=== PATIENT | male | born 1970 | race Caucasian/White ===

== ENCOUNTER 2017-05-08 17:19 | Emergency (ER) | payer MEDICAID ==
[~2017-05-08] VITALS: Ht 182.9 cm; Wt 81.6 kg
[2017-05-08 17:31] VITALS: BP 134/91
--- NOTE | 2017-05-08 17:43 | Emergency Room Report ---
History of Present Illness General Chief Complaint: Abdominal Pain Source: Patient Present Illness HPI 52-year-old male, presenting with right groin pain. Patient states that his hernia came out about 3 hours prior to arrival. States that he cannot pass any gas. His last stool was yesterday. Since that this has never happened before. No nausea vomiting or fever Allergies: Coded Allergies: No Known Allergies (Unverified , 05/08/17) Patient History Past Medical History: see triage record Past Surgical History: none Pertinent Family History: none Reviewed Nursing Documentation: PMH: Agreed, PSxH: Agreed Review of Systems All Other Systems: negative except mentioned in HPI Physical Exam Vital Signs Date Time Temp Pulse Resp B/P (MAP) Pulse Ox O2 Delivery O2 Flow Rate FiO2 05/08/17 17:20 97.5 88 18 134/91 97 Room Air 97.5 Sp02 EP Interpretation: reviewed, normal General Appearance: alert, GCS 15, non-toxic, moderate distress Head: normocephalic, atraumatic Eyes: bilateral eye normal inspection, bilateral eye PERRL, bilateral eye EOMI ENT: normal ENT inspection, normal pharynx, normal voice, moist mucus membranes Neck: normal inspection, full range of motion, supple Respiratory: normal inspection, lungs clear, normal breath sounds, no respiratory distress, no retraction, no wheezing, speaking full sentences, chest symmetrical Cardiovascular #1: normal inspection, regular rate, rhythm, normal capillary refill Cardiovascular #2: 2+ radial (R), 2+ radial (L) Gastrointestinal: normal inspection, non tender, soft, non-distended, no guarding Genitourinary: other - R sided hernia non reducible, tender Musculoskeletal: normal inspection, back normal, normal range of motion, non- tender Neurologic: normal inspection, alert, oriented x3, responsive, motor strength/ tone normal, sensory intact, normal gait, speech normal Psychiatric: normal inspection, judgement/insight normal, memory normal Skin: normal inspection, normal color, no rash, warm/dry, well hydrated, normal turgor Medical Decision Making Diagnostic Impression: Primary Impression: Inguinal hernia ER Course 52-year-old male with right-sided hernia pain DDX: Incarcerated hernia Plan: Pain control, reduction ER course: Patient given 1 g of Tylenol for pain Dr Pfeiffer from surgery came and reduced hernia Disposition: Patient is to be discharged to home. FU with his surgeon Strict return precautions discussed with patient such as fever, chills, worsening/severe pain, chest pain, SOB, nausea, vomiting, which may indicate severe illness. Patient verbalizes understanding and agrees with plan. Please note that this Emergency Department Report was dictated using [employer] attendant technology software, occasionally this can lead to erroneous entry secondary to interpretation by the dictation equipment Last Vital Signs Date Time Temp Pulse Resp B/P (MAP) Pulse Ox O2 Delivery O2 Flow Rate FiO2 05/08/17 17:31 97.5 18 134/91 97 Room Air 97.5 05/08/17 17:20 88 Disposition: HOME, SELF-CARE Condition: Improved Tyson Sanchez M.D. May 08, 2017 17:43
[2017-05-08] MEDS ORDERED: Morphine Sulfate 4mg/ml Inj IM ONE (17:45)
[2017-05-08] MEDS ORDERED: Acetaminophen 500mg (ES) tab ORAL ONE (17:45)
--- NOTE | 2017-05-08 18:13 | Consultation ---
History of Present Illness General Date patient seen: May 08, 2017 Chief Complaint: Abdominal Pain Reason for Consultation: incarcerated right inguinal hernia Present Illness HPI 52 year old male with history of drug abuse, known right inguinal hernia, repaired left inguinal hernia, presented with acute incarceration of right inguinal hernia. States that he was well until about 2-3 hrs ago when he noted acute pain in his right groin. no n/v/f/c. pain persistent and bulge unable to reduce. came in for evaluation. surgery called to evaluate given hernia difficult to reduce. patient states that he has had a right inguinal hernia for about 2 years now. about 1 month ago had acute incarceration and went to outside ED where it was reduced and he was discharged with follow up. States that he has faxed his information over to PCP or insurance? to have hernia repair scheduled but has not been given appointment yet. currently has been drug free for 1 day. hx of meth and crack use. wants to stay clean. denies pmhx has had left inguinal hernia repair 30 years ago. no allergies no meds no fhx. Allergies: Coded Allergies: No Known Allergies (Unverified , 05/08/17) Patient History History Provided By: Patient Healthcare decision maker Resuscitation status Advanced Directive on File Past Medical/Surgical History Past Medical/Surgical History: (1) Inguinal hernia Review of Systems Constitutional: Denies: no symptoms, see HPI, chills, sweats, fever, malaise, weakness, other Eye: Denies: no symptoms, see HPI, eye pain, blurred vision, tearing, double vision, nose pain, nose congestion, acuity changes, discharge, other ENT: Denies: no symptoms, see HPI, ear pain, ear discharge, nose pain, nose congestion, throat pain, throat swelling, mouth pain, hearing loss, nasal discharge, other Respiratory: Denies: no symptoms, see HPI, cough, orthopnea, shortness of breath, stridor, wheezing, [place], sputum, other Cardiovascular: Denies: no symptoms, see HPI, chest pain, edema, palpitations, syncope, PND, other Gastrointestinal: Reports: other - right groin pain Genitourinary: Denies: no symptoms, see HPI, discharge, dysuria, frequency, hematuria, pain, retention, incontinence, urgency, vag bleed/dc, other Musculoskeletal: Denies: no symptoms, see HPI, back pain, gout, joint pain, joint swelling, muscle pain, muscle stiffness, other Skin: Denies: no symptoms, see HPI, rash, change in color, change in hair/nails , dryness, lesions, other Psychiatric: Denies: no symptoms, see HPI, prior hx, anxiety, depressed feelings, emotional problems, SI, HI, hallucinations, other Neurological: Denies: no symptoms, see HPI, headache, numbness, paresthesia, seizure, tingling, tremors, focal weakness, syncope, dizziness, other Endocrine: Denies: no symptoms, see HPI, excessive sweating, flushing, intolerance to temperature, increased thirst, increased urine, unexplained weight loss, other Hematologic/Lymphatic: Denies: no symptoms, see HPI, anemia, blood clots, easy bleeding, easy bruising, swollen glands, diathesis, other Physical Exam General Appearance: no apparent distress, alert Lines, tubes and drains: peripheral HEENT: normocephalic, atraumatic, PERRL Neck: normal alignment, normal inspection Respiratory/Chest: lungs clear, normal breath sounds, no respiratory distress, no accessory muscle use Cardiovascular/Chest: normal peripheral pulses, normal rate Abdomen: normal bowel sounds, non tender, soft, no organomegaly, no mass Genitourinary/Rectal: other - prior left inguinal hernia surgery scar well healed. right side with acute incarcerated hernia with right buldge. no erythema, no edema, no signs of strangulation Extremities: normal range of motion, non-tender, normal inspection Skin Exam: normal pigmentation, warm/dry Neurologic: alert, oriented x 3, responsive Last 24 Hour Vital Signs Date Time Temp Pulse Resp B/P (MAP) Pulse Ox O2 Delivery O2 Flow Rate FiO2 05/08/17 17:52 97.5 05/08/17 17:50 97.5 05/08/17 17:31 97.5 18 134/91 97 Room Air 97.5 05/08/17 17:20 97.5 88 18 134/91 97 Room Air 97.5 Height (Feet): 6 Weight (Pounds): 180 Assessment/Plan Problem List: (1) Inguinal hernia Assessment & Plan: 52M with incarcerated right inguinal hernia. afebrile, HD stable, exam as above. patient placed in Trendelenburg position. was able to reduce hernia in ED without complication. patient states immediate improvement after reduction. exam some time after reduction benign. improved. no pain. abd/groin exam benign. -okay to d/c from surgical standpoint -follow up with his PCP/Surgeon soon to have repair of right inguinal hernia -thank you for allowing me to participate in Mr. Fajardo care. ICD Codes: K40.90 - Unilateral inguinal hernia, without obstruction or gangrene , not specified as recurrent SNOMED: [id number] Qualifiers: Qualified Codes: K40.90 - Unilateral inguinal hernia, without obstruction or gangrene, not specified as recurrent Status: stable Sixto Pfeiffer May 08, 2017 18:12
[2017-05-08 18:21] VITALS: BP 134/91
== END 2017-05-08 18:22 | disposition home or self-care (01) ==
LOC: EMR 18:03 → EDBD 18:03 → EMR 18:22
DX: K40.30 Unilateral inguinal hernia, with obstruction, without gangrene, not specified as recurrent (principal)
CPT/HCPCS: 99282

== ENCOUNTER 2017-05-25 02:25 | Emergency (ER) | payer MEDICAID ==
[~2017-05-25] VITALS: Ht 182.9 cm; Wt 88.5 kg
--- NOTE | 2017-05-25 02:37 | Emergency Room Report ---
History of Present Illness General Chief Complaint: Abdominal Pain Source: Patient Present Illness HPI This is a 47-year-old male who has a history of drug and alcohol abuse and currently in a treatment center. He also has a history of left inguinal hernia repair in the past. He was here recently for right inner hernia incarceration. He was reduced by surgeon and he said he was doing fine since then. He presents with chief complaint of acute onset of left lower quadrant pain for the last 2 to 3 hours. All other hernia containing back. Denies any fever chills but no trauma. No urinary complaint. No hematuria. Pain is severe 10 out of 10. Nothing made it better. Nothing made it worse. He came by [facility]. Allergies: Coded Allergies: No Known Allergies (Unverified , 05/08/17) Patient History Past Medical History: see triage record, old chart reviewed Past Surgical History: other Pertinent Family History: none Social History: Denies: smoking Immunizations: other Reviewed Nursing Documentation: PMH: Agreed; PSxH: Agreed Review of Systems Eye: Denies: eye pain, blurred vision ENT: Denies: ear pain, nose congestion, throat swelling Respiratory: Denies: cough, shortness of breath Cardiovascular: Denies: chest pain, palpitations Gastrointestinal: Reports: abdominal pain; Denies: diarrhea, nausea, vomiting Musculoskeletal: Denies: back pain, joint pain Skin: Denies: rash Neurological: Denies: headache, numbness Endocrine: Denies: increased thirst, increased urine Hematologic/Lymphatic: Denies: easy bruising All Other Systems: negative except mentioned in HPI Physical Exam Vital Signs Date Time Temp Pulse Resp B/P (MAP) Pulse Ox O2 Delivery O2 Flow Rate FiO2 05/25/17 02:28 98.1 83 20 144/107 99 Room Air 98.1 vitals normal Sp02 EP Interpretation: reviewed, normal General Appearance: well appearing, no apparent distress, alert Head: normocephalic, atraumatic Eyes: bilateral eye PERRL, bilateral eye EOMI ENT: hearing grossly normal, normal pharynx Neck: full range of motion, supple, no meningismus Respiratory: chest non-tender, lungs clear, normal breath sounds Cardiovascular #1: regular rate, rhythm, no murmur Gastrointestinal: normal bowel sounds, non tender, no mass, no organomegaly, no bruit, non-distended Genitourinary: other - large right inguinal hernia that reducible. Small left inguinal hernia also reducible. Musculoskeletal: back normal, gait/station normal, normal range of motion Psychiatric: mood/affect normal Skin: warm/dry Medical Decision Making Diagnostic Impression: Primary Impression: Ureteral calculus, left ER Course Patient with renal colic from ureteral stone. No evidence of infection. Pain is well-controlled now. No evidence of incarcerated hernia. We'll discharge home. CT/MRI/US Diagnostic Results CT/MRI/US Diagnostic Results : Imaging Test Ordered: CT abdomen and pelvis Impression Read by radiologist. Obstructive left proximal ureteral stone measured 3 mm. Last Vital Signs Date Time Temp Pulse Resp B/P (MAP) Pulse Ox O2 Delivery O2 Flow Rate FiO2 05/25/17 02:28 98.1 83 20 144/107 99 Room Air 98.1 Status: improved Disposition: HOME, SELF-CARE Condition: Stable Scripts Tamsulosin HCl (Flomax) 0.4 Mg Cap.er.24h 0.4 MG ORAL DAILY, #21 CAP Prov: MARA CARRION M.D. 05/25/17 Ibuprofen* (MOTRIN*) 600 Mg Tablet 600 MG ORAL Q8H PRN for For Pain, #30 TAB 0 Refills Prov: MARA CARRION M.D. 05/25/17 Hydrocodone/Acetaminophen 5-325* (HYDROCODONE/ACETAMINOPHEN 5-325*) 1 Each Tablet 1 TAB ORAL Q6H PRN for For Pain, #20 TAB 0 Refills Prov: MARA CARRION M.D. 05/25/17 Additional Instructions: Increase fluids. Follow-up your doctor in 2-3 days if not better. Return if symptom worsen. MARA CARRION M.D. May 25, 2017 02:37
[2017-05-25] MEDS ORDERED: HYDROmorphone 1mg/ml Carpuject IM ONE (02:45)
[2017-05-25 03:05] LABS: APPEARANCE,URINE VERY CLOUDY; BILIRUBIN, URINE 1+ (NEGATIVE); COLOR,URINE BROWN; GLUCOSE, URINE (UA) NEGATIVE (NEGATIVE); KETONES,URINE 1+ (NEGATIVE); LEUKOCYTE ESTERASE ,URINE 2+ (NEGATIVE); NITRITE,URINE POSITIVE (NEGATIVE); PH,URINE 5 (4.5-8.0); PROTEIN,URINE 3+ (NEGATIVE); UROBILINOGEN,URINE 1 MG/DL (0.0-1.0)
[2017-05-25] MEDS ORDERED: FLOMAX0.4 MG ORAL (03:51)
[2017-05-25] MEDS ORDERED: HYDROCODON-ACE1 EA15 ORAL (03:51)
[2017-05-25] MEDS ORDERED: IBUPROFEN600 MG ORAL (03:51)
[2017-05-25 03:57] VITALS: BP 144/107
--- NOTE | 2017-05-25 08:25 | Diagnostic Imaging Report ---
Indication: Reason For Exam: ABD PAIN Technique: Continuous helical scanning was performed without any contrast material from the diaphragms through the pelvis . Axial, sagittal, and coronal images were generated. Dose: Total Dose Length Product - DLP [address] Dose Index - CTDIvol(s) 17.5 mGy. Automated exposure control was utilized for dose reduction. Comparison: None Findings: The liver is diffusely low density. The gallbladder is normal. The spleen is unremarkable. The pancreas is normal. There is a small lesion in the left adrenal gland measuring 10 mm in size. This appears to contain fat. The aorta and inferior vena cava are normal caliber. Retroperitoneum is free of adenopathy. There is an obstructing calculus in the proximal left ureter measuring 4 mm. There is very mild hydronephrosis. Right kidney is unremarkable. Masses projecting from the left kidney are present but cannot be characterized without contrast. The bowel is normal caliber. The appendix is not visualized but there are no inflammatory changes to suggest appendicitis. The bowel appears normal caliber. There are few diverticula in the colon. No evidence of diverticulitis. The bladder is unremarkable. Prostate and seminal vesicles are normal. There are bilateral inguinal hernias containing fat. There is minimal degenerative change of the spine. Impression: Obstructing 4 mm calculus in the proximal left ureter with minimal hydronephrosis. Fatty liver. Left adrenal adenoma. Bilateral fat-containing inguinal hernias. Minimal degenerative changes of the spine. Small masses projecting from the left kidney. These are too small to characterize without contrast but likely represent small cysts. The above report is concordant with preliminary reading by [employer] . The CT scanner at [facility] is accredited by the [employer] and the scans are performed using protocols designed to limit radiation exposure to as low as reasonably achievable to attain images of sufficient resolution adequate for diagnostic evaluation.
== END 2017-05-25 03:59 | disposition home or self-care (01) ==
LOC: EDUNIT# 02:25 → EDBD 02:25 → EMR 02:30
DX: N13.2 Hydronephrosis with renal and ureteral calculous obstruction (principal); K76.0 Fatty (change of) liver, not elsewhere classified; D35.02 Benign neoplasm of left adrenal gland; K40.20 Bilateral inguinal hernia, without obstruction or gangrene, not specified as recurrent
CPT/HCPCS: 74176; 80307; 81003; 96372; 99284; J1170

== ENCOUNTER 2017-06-24 18:30 | Emergency (ER) | payer MEDICAID ==
[~2017-06-24] VITALS: Ht 182.9 cm; Wt 90.7 kg
[~2017-06-24 18:30] MED LIST: FLOMAX0.4 MG ORAL; HYDROCODON-ACE1 EA15 ORAL; IBUPROFEN600 MG ORAL
--- NOTE | 2017-06-24 18:55 | Emergency Room Report ---
History of Present Illness General Chief Complaint: Skin Rash/Abscess Source: Patient Present Illness HPI 47-year-old male patient presents ER complaining of scabies. Patient reports that he is currently living in inpatient treatment center and received some pillows from his sister. Patient reports that the pills were previously from a homeless person. Patient reports that he is a history of scabies, states that this feels similar. Patient complaining of pruritus on wrist and back of neck. Patient denies active drainage from rash. She denies fever, chest pain, shortness breath, abdominal pain, nausea, vomiting, diarrhea. Patient also reports history of hernia operation 1 week ago.. Patient reports that his tape on his incision site came off. Patient requesting wound check. Allergies: Coded Allergies: No Known Allergies (Unverified , 05/08/17) Patient History Reviewed Nursing Documentation: PMH: Agreed; PSxH: Agreed Review of Systems All Other Systems: negative except mentioned in HPI Physical Exam Vital Signs Date Time Temp Pulse Resp B/P (MAP) Pulse Ox O2 Delivery O2 Flow Rate FiO2 06/24/17 18:32 98.2 92 20 119/81 98 Room Air 98.2 Sp02 EP Interpretation: reviewed, normal General Appearance: well appearing, no apparent distress, alert, GCS 15, non- toxic Head: normocephalic, atraumatic Eyes: bilateral eye normal inspection, bilateral eye PERRL Respiratory: lungs clear, normal breath sounds, no rhonchi, no respiratory distress, no accessory muscle use, no wheezing, speaking full sentences Cardiovascular #1: regular rate, rhythm, no edema Musculoskeletal: back normal, digits/nails normal, gait/station normal, normal range of motion, non-tender Neurologic: alert, oriented x3, responsive, motor strength/tone normal, sensory intact Psychiatric: mood/affect normal Skin: rash - bilateral dorsum of wrists and posterior neck: macularpapular erythematous rash, no drainage, no TTP, , laceration - right inguinal region: healing 4-5 cm laceration, exposed tissue, no erythema, no edema, no TTP, no bleeding, no active drainage Medical Decision Making PA Attestation Dr. Lozada is my supervising Physician whom patient management has been discussed with. Diagnostic Impression: Primary Impression: Rash and other nonspecific skin eruption Additional Impression: Encounter for postoperative wound check ER Course Pt. presents to the ED c/o rash and wound check. Ddx considered but are not limited to atopic dermatitis, scabies, shingles, hives, urticaria, wound check. Vital signs: are WNL, pt. is afebrile ER COURSE PE shows rash on wrists and neck, patient complains of pruritis, patient reports consistent with previous scabies infection. Will provide patient with Permethrin cream. Instructed on proper use. Instructed patient to clean and wash all clothes and bedding. Followup with primary care provider for further treatment and referral as needed. Wound shows no signs of infection, no erythema or edema, no active drainage. Wound dressed with steri-strips and Bacitracin. Followup with surgeon who performed surgery for wound check and followup. DISCHARGE: -Rx given for Permethrin cream. At this time pt. is stable for d/c to home. Patient resting comfortably, in no acute distress, nontoxic appearing, smiling and laughing and playing on his phone. Will provide printed patient care instructions, and any necessary prescriptions. Care plan and follow up instructions have been discussed with the patient prior to discharge. Patient provided with list of healthcare clinics to establish primary care physician. Patient instructed to follow-up with primary care provider in 3 - 5 days. Patient questions asked and answered. ER precautions given. Patient instructed to return to ER immediately for any new or worsening of symptoms including but not limited to increasing SOB, persistent fever. - Please note that this Emergency Department Report was dictated using [employer] strap buckler technology software, occasionally this can lead to erroneous entry secondary to interpretation by the dictation equipment. Last Vital Signs Date Time Temp Pulse Resp B/P (MAP) Pulse Ox O2 Delivery O2 Flow Rate FiO2 06/24/17 18:32 98.2 92 20 119/81 98 Room Air 98.2 Disposition: HOME, SELF-CARE Condition: Stable Scripts Permethrin* (ELIMITE*) 60 Gm Cream..g. 1 APPLIC TOPIC ONCE, #60 GM 0 Refills Apply cream from head to toe; leave on for 8-14 hours before washing off with water; may reapply in 1 week if live mites appear. Prov: Tino Dhillon 06/24/17 Patient Instructions: Permethrin skin cream, Scabies, Pediatric, Wound Check Additional Instructions: Followup with primary care provider in 3 -5 days. Clean all clothing and bedding. Follow-up with surgeon who performed the procedure. Take medications as directed. Patient questions asked and answered. ER precautions given, patient instructed to return to ER immediately for any new or worsening of symptoms. Tino Dhillon Jun 24, 2017 18:55
[2017-06-24 19:05] VITALS: BP 119/81
[2017-06-24] MEDS ORDERED: PERMETHRIN60 GM TOPIC (19:10)
[2017-06-24] MEDS ORDERED: Bacitracin Oint UD TOPIC ONE (19:30)
[2017-06-24 20:00] VITALS: BP 119/81
== END 2017-06-24 20:00 | disposition home or self-care (01) ==
LOC: EMR 19:08
DX: R21 Rash and other nonspecific skin eruption (principal); S31.113D Laceration without foreign body of abdominal wall, right lower quadrant without penetration into peritoneal cavity, subsequent encounter; Y83.9 Surgical procedure, unspecified as the cause of abnormal reaction of the patient, or of later complication, without mention of misadventure at the time of the procedure
CPT/HCPCS: 99283

== ENCOUNTER 2017-07-20 19:04 | Emergency (ER) | payer MEDICAID, OTHER ==
[~2017-07-20] VITALS: Ht 182.9 cm; Wt 90.7 kg
[~2017-07-20 19:04] MED LIST changes: +PERMETHRIN60 GM TOPIC
[2017-07-20 19:17] VITALS: BP 151/78
--- NOTE | 2017-07-20 19:37 | Emergency Room Report ---
History of Present Illness General Chief Complaint: Pain Source: Patient, Medical Record (Bud Frias P.A.) Present Illness HPI 47 y.o. M with hx of alcohol abuse and cocaine abuse, here c/o 2.5wks of right hip pain post playing basketball. rating the pain 7-8/10, radiation to lower leg , no tingling/numbness, took ibuprofen with no improvement, reporting pain worsening since 2.5wks ago. pt walks in saying he has sciatica but has never been dx with sciatica, denies fall/injury to hip, does not recall wether his pain started after jumping or landing on feet after playing basketball. mentions he wants an inj for pain med. denies sob, cp, palpitation, MIRELES, dizziness, vision changes, BP is 151/78. pt in no distress, laughing and communicating well. when asked when he last took norco, he said one month ago he had an inguinal hernia repair and took a few. Cures was done, he was dispensed 40 norcos on 06/18. pt reports he only took 3 pills and when asked if he still has left over , he replied"I threw them all out so I wont be dependant on them." pt reports he has been told before that he has HTN but on no meds. (Bud Frias P.A.) Allergies: Coded Allergies: No Known Allergies (Unverified , 05/08/17) Patient History Past Medical History: see triage record Past Surgical History: other - inguina hernia repair Pertinent Family History: unable to obtain Reviewed Nursing Documentation: PMH: Agreed; PSxH: Agreed (Bud Frias P.A.) Review of Systems All Other Systems: negative except mentioned in HPI (Bud Frias P.A.) Physical Exam Vital Signs Date Time Temp Pulse Resp B/P (MAP) Pulse Ox O2 Delivery O2 Flow Rate FiO2 07/20/17 19:11 98.5 78 18 151/78 97 Room Air 98.4 Sp02 EP Interpretation: reviewed General Appearance: normal inspection, well appearing, no apparent distress, alert, GCS 15 Head: normocephalic Eyes: bilateral eye normal inspection, bilateral eye PERRL ENT: normal ENT inspection, hearing grossly normal, normal pharynx Neck: normal inspection, full range of motion, supple Respiratory: normal inspection, chest non-tender, lungs clear, normal breath sounds, no rhonchi, no respiratory distress, no retraction, no accessory muscle use, no wheezing Cardiovascular #1: normal inspection, normal peripheral pulses, regular rate, rhythm, no edema, no gallop, no murmur, no rub, normal capillary refill Cardiovascular #2: 2+ femoral (R), 2+ femoral (L), 2+ dorsalis pedis (R), 2+ dorsalis pedis (L) Gastrointestinal: normal inspection, normal bowel sounds, non tender Rectal: deferred Genitourinary: deferred Musculoskeletal: normal inspection, back normal, gait/station normal, normal range of motion, non-tender, no calf tenderness, pelvis stable Neurologic: normal inspection, alert, oriented x3, responsive Psychiatric: normal inspection, judgement/insight normal Skin: normal inspection, normal color, no rash, warm/dry Lymphatic: normal inspection, no adenopathy (Bud Frias P.A.) Medical Decision Making PA Attestation all dx, PE, orders, tx plans reviewed by my supervising physician Dr. Lozada Reaction to Intervention: Improved (Bud Frias P.A.) Diagnostic Impression: Primary Impression: Hip pain, right Additional Impression: Sciatic leg pain ER Course 47 y.o. M with hx of alcohol abuse and cocaine abuse, here c/o 2.5wks of right hip pain post playing basketball. rating the pain 7-8/10, radiation to lower leg , no tingling/numbness, took ibuprofen with no improvement, reporting pain worsening since 2.5wks ago. pt walks in saying he has sciatica but has never been dx with sciatica, denies fall/injury to hip, does not recall wether his pain started after jumping or landing on feet after playing basketball. mentions he wants an inj for pain med. denies sob, cp, palpitation, MIRELES, dizziness, vision changes, BP is 151/78. pt in no distress, laughing and communicating well. when asked when he last took norco, he said one month ago he had an inguinal hernia repair and took a few. Cures was done, he was dispensed 40 norcos on 4/24 /2018. pt reports he only took 3 pills and when asked if he still has left over , he replied"I threw them all out so I wont be dependant on them." pt reports he has been told before that he has HTN but on no meds. Ddx considered but are not limited to : unspecified hip pain, sciatica, muskloskeletal pain Vital signs: are WNL, pt. is afebrile H&PE are most consistent with muskuloskeletal pain ORDERS: X-ray of right hip 2 views ED INTERVENTIONS: toradol 30mg IM given in ED DISCHARGE: At this time pt. is stable for d/c to home. Will provide printed patient care instructions, and any necessary prescriptions. Care plan and follow up instructions have been discussed with the patient prior to discharge. (Bud Frias P.A.) Other X-Ray Diagnostic Results Other X-Ray Diagnostic Results : X-Ray ordered: right hip X-ray 2 views # of Views/Limited Vs Complete: 2 View Indication: Pain EP Interpretation: Yes PA Xray: Interpretation reviewed, by supervising MD, and agrees with findings. Interpretation: no dislocation, no soft tissue swelling, no fractures Impression: No acute disease Electronically Signed by: Bud Peace PA-C (Bud Frias P.AJesse) Other X-Ray Diagnostic Results : Electronically Signed by: Nicole documentation reviewed by me and is accurate, Pk Lozada MD. (Pk Lozada M.D.) Last Vital Signs Date Time Temp Pulse Resp B/P (MAP) Pulse Ox O2 Delivery O2 Flow Rate FiO2 07/20/17 19:17 98.4 78 18 151/78 97 Room Air 98.4 Status: improved (Bud Frias P.A.) Disposition: HOME, SELF-CARE Condition: Stable Scripts Acetaminophen* (TYLENOL EXTRA STRENGTH*) 500 Mg Tablet 500 MG ORAL Q6H PRN for Mild Pain/Temp > 100.5, #30 TAB 0 Refills Prov: Bud Frias.AJesse 07/20/17 Patient Instructions: Hip Pain, Sciatica Bud Frias July 20, 2017 19:36 Pk Lozada M.D. July 21, 2017 02:42
[2017-07-20] MEDS ORDERED: TYLENOL EXTRA500 MG ORAL (20:00)
[2017-07-20] MEDS ORDERED: Ketorolac 30mg Inj IM ONE (20:00)
--- NOTE | 2017-07-20 20:02 | Diagnostic Imaging Report ---
EXAM: XR Right Hip With Pelvis When Performed, 2 or 3 Views CLINICAL HISTORY: PAIN TECHNIQUE: Two or three views of the right hip, with pelvis when performed. COMPARISON: No relevant prior studies available. FINDINGS: Bones/joints: Unremarkable. No visible displaced fracture. No dislocation. No osseous erosions. Visualized joint spaces appear unremarkable. Soft tissues: Unremarkable. IMPRESSION: Unremarkable right hip x-rays.
[2017-07-20 20:15] VITALS: BP 0/0
[2017-07-21] MEDS ORDERED: IBUPROFEN600 MG ORAL (14:57)
[2017-07-21] MEDS ORDERED: TRAMADOL HCL50 MG ORAL (14:57)
== END 2017-07-20 22:15 | disposition home or self-care (01) ==
LOC: EMR 20:00
DX: M25.551 Pain in right hip (principal); M54.30 Sciatica, unspecified side
CPT/HCPCS: 73502; 96372; 99283; J1885

== ENCOUNTER 2017-07-21 14:17 | Emergency (ER) | payer MEDICAID, OTHER ==
[~2017-07-21] VITALS: Ht 182.9 cm; Wt 90.7 kg
[~2017-07-21 14:17] MED LIST changes: +TYLENOL EXTRA500 MG ORAL
[2017-07-21 14:38] VITALS: BP 138/82
--- NOTE | 2017-07-21 14:55 | Emergency Room Report ---
History of Present Illness General Chief Complaint: Pain Source: Patient, Medical Record Present Illness HPI Patient presents with right hip pain. He strained it during a basketball game two and a half weeks ago. He's been taking ibuprofen 800 mg this is been helping somewhat. The pain radiates down from his back into his leg. He was seen yesterday and had x-rays of his right hip which were normal (I reviewed these today). He denies any fevers, chills, nausea, vomiting or diarrhea. He had #40 [place] on the felt but he threw them away. He's a rehabilitation facility. Apparently they are not going to disallow any pain medication for him. The patient had a strain on the opposite hip several years ago which felt similar and received a shot of cortisone. He is requesting a shot of cortisone at this time. Pain rated at 8/10, resolved when laying down, but worsened with standing and twisting his hip. In addition is complaining about some tingling in his right fingers. This started last night. Says is fairly constant. He's not sure what it is related to. He denies any weakness. There is no chest pain cough. He may have slept wrong last night. There is no family history of strokes and is not treated for hypertension. The patient is in rehabilitation for alcohol and cocaine use. Allergies: Coded Allergies: No Known Allergies (Unverified , 05/08/17) Patient History Past Medical History: see triage record Social History: Reports: alcohol use, drug use; Denies: smoking - former Social History Narrative in rehabilitation Reviewed Nursing Documentation: PMH: Agreed; PSxH: Agreed Nursing Documentation-PM Past Medical History: No History, Except For Review of Systems All Other Systems: negative except mentioned in HPI Physical Exam Vital Signs Date Time Temp Pulse Resp B/P (MAP) Pulse Ox O2 Delivery O2 Flow Rate FiO2 07/21/17 14:20 97.9 76 18 138/82 95 Room Air 97.9 Sp02 EP Interpretation: reviewed, normal General Appearance: well appearing, no apparent distress Head: normocephalic, atraumatic Eyes: bilateral eye normal inspection, bilateral eye PERRL ENT: hearing grossly normal, normal voice, moist mucus membranes Neck: full range of motion, supple Respiratory: no respiratory distress, speaking full sentences Cardiovascular #1: regular rate, rhythm Cardiovascular #2: 2+ radial (R) Gastrointestinal: normal inspection, scaphoid Musculoskeletal: digits/nails normal, gait/station normal, no calf tenderness, other - lumbar back tenderness - SLR negative - SI tests negative Neurologic: alert, oriented x3, racecar driver III-XII nml as tested, motor strength/tone normal, DTRs symmetric, sensory intact - except for subjective numbness R index , middle and ring fingers, normal gait Psychiatric: mood/affect normal Skin: no rash Medical Decision Making Diagnostic Impression: Primary Impression: Strain of right hip Qualified Codes: S76.011D - Strain of muscle, fascia and tendon of right hip, subsequent encounter Additional Impression: Right hand paresthesia ER Course The patient presents with ongoing right hip pain. X-rays are reviewed and there 's no fracture. Differential includes strain, sprain, sciatica amongst others. He also complains about right hand numbness. No evidence of stroke at this time. Differential also includes carpal tunnel or radial tunnel syndrome or possible radiculopathy. No further testing is indicated at this time. I discussed did not like the ibuprofen to continue with cortisone as cortisone would reduce the protective lining of his stomach. We discussed about use of tramadol and the patient agreed to this. I also stated that physical therapy could help. Also OK to take tylenol with tramadol and motrin. The patient is stable for outpatient observation and treatment. Other X-Ray Diagnostic Results Other X-Ray Diagnostic Results : X-Ray ordered: R hip # of Views/Limited Vs Complete: 3 View Indication: Pain Interpretation: no dislocation, no soft tissue swelling, no fractures Impression: No acute disease Electronically Signed by: Pk Lozada MD Last Vital Signs Date Time Temp Pulse Resp B/P (MAP) Pulse Ox O2 Delivery O2 Flow Rate FiO2 07/21/17 15:14 97.9 07/21/17 15:14 94 18 138/82 95 Room Air Status: improved Disposition: HOME, SELF-CARE - rehab Condition: Improved Scripts Ibuprofen* (MOTRIN*) 600 Mg Tablet 600 MG ORAL Q6H PRN for For Pain, #20 TAB Prov: Pk Lozada M.D. 07/21/17 Tramadol Hcl* (ULTRAM*) 50 Mg Tablet 50 MG ORAL Q6H PRN for For Pain, #10 TAB 0 Refills Prov: Pk Lozada M.D. 07/21/17 Pk Lozada M.D. July 21, 2017 14:55
[2017-07-21] MEDS ORDERED: TRAMADOL HCL50 MG ORAL (14:57)
[2017-07-21] MEDS ORDERED: IBUPROFEN600 MG ORAL (14:57)
[2017-07-21] MEDS ORDERED: traMADol 50mg tab ORAL ONE (15:00)
[2017-07-21 15:14] VITALS: BP 138/82
== END 2017-07-21 15:16 | disposition home or self-care (01) ==
LOC: EMR 15:01
DX: S76.011D Strain of muscle, fascia and tendon of right hip, subsequent encounter (principal); R20.2 Paresthesia of skin; X58.XXXD Exposure to other specified factors, subsequent encounter
CPT/HCPCS: 99284

== ENCOUNTER 2017-08-05 12:51 | Emergency (ER) | payer MEDICAID ==
[~2017-08-05] VITALS: Ht 182.9 cm; Wt 89.8 kg
[~2017-08-05 12:51] MED LIST changes: +TRAMADOL HCL50 MG ORAL
[2017-08-05 13:11] VITALS: BP 141/93
[2017-08-05] MEDS ORDERED: Isovue-300 100ml vial INJ PRN (13:15)
[2017-08-05 13:41] LABS: BASOPHILS % (AUTO) 1.1 % (0.0-2.0); EOSINOPHILS % (AUTO) 2.8 % (0.0-3.0); HEMATOCRIT 44.7 % (42.0-52.0); HEMOGLOBIN 15.2 G/DL (14.2-18.0); MEAN CORPUSCULAR VOLUME 86 FL (80-99); MONOCYTES % (AUTO) 9.6 % (1.0-10.0); NEUTROPHILS % (AUTO) 58.6 % (45.0-75.0); PLATELET COUNT 179 K/UL (150-450); RED BLOOD COUNT 5.21 M/UL (4.70-6.10); RED CELL DISTRIBUTION WIDTH 11.2 % (11.6-14.8)
[2017-08-05 13:51] LABS: ANION GAP 9 mmol/L (5-15); BLOOD UREA NITROGEN 18 mg/dL (7-18); CALCIUM 8.8 MG/DL (8.5-10.1); CARBON DIOXIDE 25 MMOL/L (21-32); CHLORIDE 104 MMOL/L (98-107); CREATININE 1.4 MG/DL (0.55-1.30); POTASSIUM 4.2 MMOL/L (3.5-5.1); SODIUM 138 MMOL/L (136-145)
[2017-08-05 13:57] LABS: ALANINE AMINOTRANSFERASE 77 U/L (12-78); ALBUMIN 3.7 G/DL (3.4-5.0); ALBUMIN/GLOBULIN RATIO 1.1 (1.0-2.7); ALKALINE PHOSPHATASE 117 U/L (46-116); ASPARTATE AMINO TRANSFERASE 47 U/L (15-37); BILIRUBIN,TOTAL 0.4 MG/DL (0.2-1.0)
[2017-08-05 14:11] LABS: APPEARANCE,URINE CLEAR; BILIRUBIN, URINE NEGATIVE (NEGATIVE); GLUCOSE, URINE (UA) NEGATIVE (NEGATIVE); KETONES,URINE NEGATIVE (NEGATIVE); LEUKOCYTE ESTERASE ,URINE 1+ (NEGATIVE); NITRITE,URINE NEGATIVE (NEGATIVE); PH,URINE 6 (4.5-8.0); PROTEIN,URINE NEGATIVE (NEGATIVE); UROBILINOGEN,URINE 1 MG/DL (0.0-1.0)
[2017-08-05 14:18] LABS: COLOR,URINE YELLOW
[2017-08-05] MEDS ORDERED: Ketorolac 30mg Inj IV ONE (15:15)
--- NOTE | 2017-08-05 15:38 | Diagnostic Imaging Report ---
Indication: Left flank pain Technique: Spiral acquisitions obtained through the abdomen and pelvis. No oral or IV contrast utilized, per urinary stone protocol. Multiplanar reconstructions were generated. Total dose length product 813.84 mGycm. CTDIvol(s) 15.03 mGy. Dose reduction achieved using automated exposure control Comparison: 05/25/2017 Findings: 5 x 4 mm calculus is seen in the distal left ureter, approximately 15-20 mm proximal to the ureterovesical junction. This results in mild left hydroureter, mild left hydronephrosis, and stranding of the perinephric fat. Previously, this was in the proximal left ureter. The degree of fat stranding has increased slightly since the previous exam in the left renal collecting system is slightly more hydronephrotic. A tiny nonobstructive interpolar region calyceal calculus is seen anteriorly on the left. Lack of IV contrast limits assessment of the renal parenchyma. There is an exophytic left lower pole cyst, as well as one or more subcentimeter left renal low-attenuation lesions which are too small to characterize. No right renal or ureteral calculi, hydronephrosis, or hydroureter. Lack of IV contrast limits assessment of the other solid organs. The liver is minimally hypoattenuating, consistent with mild fatty change. The gallbladder, bile ducts, pancreas, spleen, right adrenal are unremarkable. Left adrenal demonstrates a 1 cm mass which demonstrates negative Hounsfield unit attenuation no retroperitoneal or mesenteric mass or adenopathy. No pelvic mass or adenopathy. High attenuation material is again demonstrated in the right inguinal canal. There is a small fat-containing left inguinal hernia. There is colonic diverticulosis. No evidence of diverticulitis. The appendix is normal. The included lung bases demonstrate posterior dependent atelectatic changes. The bones are unremarkable. Impression: 4 mm left distal ureteral calculus. Previously, on prior study of 05/25/2017, this was in the proximal left ureter. Mild left hydronephrosis and perinephric fat stranding appears slightly increased from the prior study, and there is now mild hydroureter as a result of the dislocation of the calculus Tiny nonobstructive left interpolar region calyceal calculus Left lower pole cyst, as well as subcentimeter low-attenuation left renal lesions which are too small to characterize, most likely benign simple cysts. No further follow-up necessary Mild fatty liver Small 1 cm left adrenal adenoma, also previously reported Colonic diverticulosis. No evidence of diverticulitis Other findings as noted, including fat-containing inguinal hernias, posterior dependent pulmonary atelectatic changes The CT scanner at [facility] is accredited by the [employer] and the scans are performed using protocols designed to limit radiation exposure to as low as reasonably achievable to attain images of sufficient resolution adequate for diagnostic evaluation.
--- NOTE | 2017-08-05 15:50 | Emergency Room Report ---
History of Present Illness General Chief Complaint: Abdominal Pain Source: Patient Present Illness HPI This patient states that 2 months ago he was diagnosed with a left-sided kidney stone. He states that he was seen here at this emergency department. He states that he had been doing well until yesterday evening when he developed severe pain in his left lower quadrant. He states this is very similar to the previous kidney stone. He denies fever or chills. He denies nausea or vomiting. He denies dysuria or hematuria. He has no other complaints. Allergies: Coded Allergies: No Known Allergies (Unverified , 05/08/17) Patient History Past Medical History: see triage record, other - HCV, ETOH abuse, substance abuse Social History: Reports: alcohol use, drug use Reviewed Nursing Documentation: PMH: Agreed; PSxH: Agreed Review of Systems All Other Systems: negative except mentioned in HPI Physical Exam Vital Signs Date Time Temp Pulse Resp B/P (MAP) Pulse Ox O2 Delivery O2 Flow Rate FiO2 08/05/17 13:00 99.4 59 19 141/93 95 Room Air 99.3 Sp02 EP Interpretation: reviewed, normal General Appearance: no apparent distress, alert, GCS 15, non-toxic Head: normocephalic, atraumatic Eyes: bilateral eye normal inspection, bilateral eye PERRL ENT: hearing grossly normal, normal pharynx, no angioedema, normal voice Neck: full range of motion, supple/symm/no masses Respiratory: chest non-tender, lungs clear, normal breath sounds, speaking full sentences Cardiovascular #1: regular rate, rhythm, no edema Gastrointestinal: normal bowel sounds, non tender, soft, non-distended, no guarding, no rebound Rectal: deferred Genitourinary: CVA tenderness (L) Musculoskeletal: back normal, gait/station normal, normal range of motion, non- tender Neurologic: alert, oriented x3, responsive, motor strength/tone normal, sensory intact, speech normal Psychiatric: judgement/insight normal, memory normal, mood/affect normal, no suicidal/homicidal ideation Skin: normal color, no rash, warm/dry, well hydrated Medical Decision Making Diagnostic Impression: Primary Impression: Urolithiasis ER Course This patient has had progression of his left kidney stone into the distal ureter. Likely this stone will pass. The patient was given pain medications and Flomax to help facilitate spontaneous passage of the stone. There is no evidence of infected stone. I did educate the patient that if the stone does not pass and he continues to have uncontrolled pain he may need to have lithotripsy and stone retrieval. He indicated understanding. He was given close return precautions and follow-up instructions. Laboratory Tests Test 08/05/17 13:21 08/05/17 13:56 White Blood Count 8.0 K/UL (4.8-10.8) Red Blood Count 5.21 M/UL (4.70-6.10) Hemoglobin 15.2 G/DL (14.2-18.0) Hematocrit 44.7 % (42.0-52.0) Mean Corpuscular Volume 86 FL (80-99) Mean Corpuscular Hemoglobin 29.1 PG (27.0-31.0) Mean Corpuscular Hemoglobin Concent 34.0 G/DL (32.0-36.0) Red Cell Distribution Width 11.2 % (11.6-14.8) L Platelet Count 179 K/UL (150-450) Mean Platelet Volume 6.8 FL (6.5-10.1) Neutrophils (%) (Auto) 58.6 % (45.0-75.0) Lymphocytes (%) (Auto) 28.0 % (20.0-45.0) Monocytes (%) (Auto) 9.6 % (1.0-10.0) Eosinophils (%) (Auto) 2.8 % (0.0-3.0) Basophils (%) (Auto) 1.1 % (0.0-2.0) Sodium Level 138 MMOL/L (136-145) Potassium Level 4.2 MMOL/L (3.5-5.1) Chloride Level 104 MMOL/L (98-107) Carbon Dioxide Level 25 MMOL/L (21-32) Anion Gap 9 mmol/L (5-15) Blood Urea Nitrogen 18 mg/dL (7-18) Creatinine 1.4 MG/DL (0.55-1.30) H Estimate Glomerular Filtration Rate 53.9 mL/min (>60) Glucose Level 128 MG/DL (74-106) H Calcium Level 8.8 MG/DL (8.5-10.1) Total Bilirubin 0.4 MG/DL (0.2-1.0) Aspartate Amino Transferase (AST) 47 U/L (15-37) H Alanine Aminotransferase (ALT) 77 U/L (12-78) Alkaline Phosphatase 117 U/L (46-116) H Total Protein 7.0 G/DL (6.4-8.2) Albumin 3.7 G/DL (3.4-5.0) Globulin 3.3 g/dL Albumin/Globulin Ratio 1.1 (1.0-2.7) Lipase 168 U/L (73-393) Urine Color Yellow Urine Appearance Clear Urine pH 6 (4.5-8.0) Urine Specific Murphy 1.015 (1.005-1.035) Urine Protein Negative (NEGATIVE) Urine Glucose (UA) Negative (NEGATIVE) Urine Ketones Negative (NEGATIVE) Urine Occult Blood 4+ (NEGATIVE) H Urine Nitrite Negative (NEGATIVE) Urine Bilirubin Negative (NEGATIVE) Urine Urobilinogen 1 MG/DL (0.0-1.0) H Urine Leukocyte Esterase 1+ (NEGATIVE) H Urine RBC 10-15 /HPF (0 - 0) H Urine WBC 0-2 /HPF (0 - 0) Urine Squamous Epithelial Cells Occasional /LPF Urine Bacteria Occasional /HPF (NONE) CT/MRI/US Diagnostic Results CT/MRI/US Diagnostic Results : Imaging Test Ordered: CT abd/pelvis Impression Impression: 4 mm left distal ureteral calculus. Previously, on prior study of 05/25/2017, this was in the proximal left ureter. Mild left hydronephrosis and perinephric fat stranding appears slightly increased from the prior study, and there is now mild hydroureter as a result of the dislocation of the calculus Tiny nonobstructive left interpolar region calyceal calculus Left lower pole cyst, as well as subcentimeter low-attenuation left renal lesions which are too small to characterize, most likely benign simple cysts. No further follow-up necessary Mild fatty liver Small 1 cm left adrenal adenoma, also previously reported Colonic diverticulosis. No evidence of diverticulitis Other findings as noted, including fat-containing inguinal hernias, posterior dependent pulmonary atelectatic changes Last Vital Signs Date Time Temp Pulse Resp B/P (MAP) Pulse Ox O2 Delivery O2 Flow Rate FiO2 08/05/17 13:11 99.3 19 141/93 95 Room Air 99.3 08/05/17 13:00 59 Status: improved Disposition: HOME, SELF-CARE Condition: Improved Scripts Tamsulosin HCl (Flomax) 0.4 Mg Cap.er.24h 0.4 MG ORAL DAILY, #14 CAP Prov: Mela Lee DO 08/05/17 Oxycodone/Acetaminophen 5-325* (PERCOCET 5-325 MG TABLET*) 1 Each Tablet 1 TAB ORAL Q6H PRN for For Pain, #21 TAB 0 Refills Prov: Mela Lee DO 08/05/17 Ibuprofen* (MOTRIN*) 800 Mg Tablet 800 MG ORAL THREE TIMES A DAY, #30 TAB 0 Refills Prov: Mela Lee DO 08/05/17 [facility]errals: [facility],REFERRING (PCP) Mela Lee DO Aug 05, 2017 15:50
[2017-08-05] MEDS ORDERED: IBUPROFEN800 MG ORAL (16:12)
[2017-08-05] MEDS ORDERED: PERCOCET 5-3251 EACH ORAL (16:12)
[2017-08-05] MEDS ORDERED: FLOMAX0.4 MG ORAL (16:13)
[2017-08-05 16:29] VITALS: BP 129/88
== END 2017-08-05 16:30 | disposition home or self-care (01) ==
LOC: EMR 13:56
DX: N20.0 Calculus of kidney (principal); K57.30 Diverticulosis of large intestine without perforation or abscess without bleeding; K76.0 Fatty (change of) liver, not elsewhere classified; D35.02 Benign neoplasm of left adrenal gland; N28.1 Cyst of kidney, acquired
CPT/HCPCS: 36415; 74176; 80053; 81003; 83690; 85025; 96374; 96375; 99283

== ENCOUNTER 2017-10-12 12:11 | Emergency (ER) | payer MEDICAID ==
[~2017-10-12] VITALS: Ht 182.9 cm; Wt 85.3 kg
[~2017-10-12 12:11] MED LIST changes: +IBUPROFEN800 MG ORAL; +PERCOCET 5-3251 EACH ORAL
[2017-10-12] MEDS ORDERED: NKM (12:49)
[2017-10-12] MEDS ORDERED: Lidocaine 1% MPF 10mg/ml 5ml INJ ONE (13:00)
[2017-10-12] MEDS ORDERED: Azithromycin 250mg tab ORAL ONE (13:00)
--- NOTE | 2017-10-12 13:08 | Emergency Room Report ---
History of Present Illness General Chief Complaint: Male Urogenital Problems Source: Patient Present Illness HPI 47-year-old male presents to the emergency department complaining of 4 out of 10 in severity dysuria with penile discharge 2 days. Patient also reports some low back aches denies strenuous activities, trauma or fall. Patient denies genital lesions he denies swollen tender lymph nodes or rashes. Patient reports she has had gonorrhea once in the past and had very similar presentation to his current symptoms. Denies testicular pain or tenderness. Patient denies fevers or chills nausea vomiting or abdominal pain/tenderness. Patient reports recent unprotected intercourse. Allergies: Coded Allergies: No Known Allergies (Unverified , 05/08/17) Patient History Past Medical History: see triage record Past Surgical History: none Pertinent Family History: none Reviewed Nursing Documentation: PMH: Agreed; PSxH: Agreed Nursing Documentation-PMH Past Medical History: No History, Except For Hx Gastrointestinal Problems: Yes - hernia repair 1988 & 2018, Left inguinal hernia, Hep C Review of Systems All Other Systems: negative except mentioned in HPI Physical Exam Vital Signs Date Time Temp Pulse Resp B/P (MAP) Pulse Ox O2 Delivery O2 Flow Rate FiO2 10/12/17 12:45 97.8 88 16 126/82 97 Room Air 97.9 Sp02 EP Interpretation: reviewed, normal General Appearance: no apparent distress, alert, GCS 15, non-toxic Head: normocephalic, atraumatic Eyes: bilateral eye normal inspection, bilateral eye PERRL ENT: hearing grossly normal, normal voice Neck: full range of motion Respiratory: chest non-tender, lungs clear, normal breath sounds, speaking full sentences Cardiovascular #1: regular rate, rhythm, no edema Gastrointestinal: normal bowel sounds, non tender, soft Rectal: deferred Genitourinary: normal inspection Musculoskeletal: back normal, gait/station normal, normal range of motion, non- tender Neurologic: alert, oriented x3, responsive, motor strength/tone normal, sensory intact, speech normal, grossly normal Psychiatric: judgement/insight normal Skin: normal color, no rash, warm/dry, well hydrated Lymphatic: no adenopathy Medical Decision Making PA Attestation Dr. Middleton is my supervising physician whom pt. management has been discussed with. Diagnostic Impression: Primary Impression: Urethritis ER Course 47-year-old male presents to the emergency department complaining of 4 out of 10 in severity dysuria with penile discharge 2 days. Patient also reports some low back aches denies strenuous activities, trauma or fall. Patient denies genital lesions he denies swollen tender lymph nodes or rashes. Patient reports she has had gonorrhea once in the past and had very similar presentation to his current symptoms. Denies testicular pain or tenderness. Patient denies fevers or chills nausea vomiting or abdominal pain/tenderness. Patient reports recent unprotected intercourse. Ddx considered but are not limited to UTi , Urethritis, LGV, STI, Stone, Cystitis, prostatitis Vital signs: are WNL, pt. is afebrile H&PE are most consistent with Urethritis - pt. wants prophylactic tx, declines PE. ORDERS: - Pt declines will treat prophylactically. ED INTERVENTIONS: -250mg Rocephin IM -1g Azithromycin DISCHARGE: At this time pt. is stable for d/c to home. Will provide printed patient care instructions, and any necessary prescriptions. Care plan and follow up instructions have been discussed with the patient prior to discharge. Last Vital Signs Date Time Temp Pulse Resp B/P (MAP) Pulse Ox O2 Delivery O2 Flow Rate FiO2 10/12/17 12:45 97.8 88 16 126/82 97 Room Air 97.9 Disposition: HOME, SELF-CARE Condition: Stable Patient Instructions: Urethritis, Adult Additional Instructions: Take any previously prescribed medications as directed. Follow up with a Primary Care Provider in 3-5 days, even if your symptoms have resolved. Return sooner to ED if new symptoms occur, or current symptoms become worse. - Please note that this Emergency Department Report was dictated using Umweltechcontact lens technician technology software, occasionally this can lead to erroneous entry secondary to interpretation by the dictation equipment. Yamile Garcia Oct 12, 2017 13:08
[2017-10-12 13:12] VITALS: BP 118/78
== END 2017-10-12 13:14 | disposition home or self-care (01) ==
LOC: EMR 13:05
DX: N34.2 Other urethritis (principal)
CPT/HCPCS: 96372; 99283; J0696; Q0144

== ENCOUNTER 2018-03-06 10:43 | Emergency (ER) | payer MEDICAID ==
[~2018-03-06] VITALS: Ht 182.9 cm; Wt 86.2 kg
[~2018-03-06 10:43] MED LIST changes: +NKM
[2018-03-06 11:05] VITALS: BP 130/88
--- NOTE | 2018-03-06 11:05 | NUR ---
ED Nurse Note: pt walked into ED c/o generalized bodyache, pt denies chills, fever, cough, or other flu like s/s, denies injury or exercise. pt states he just woke up with pain. pt AA&ox4, gcs=15, skin warm and dry, resp even and unlabored, -n/v/d, ambulates w/ steady gait. will cont monitor.
[2018-03-06] MEDS ORDERED: TRAZODONE HCL50 MG ORAL (11:08)
[2018-03-06 12:00] VITALS: BP 130/87
--- NOTE | 2018-03-06 12:00 | NUR ---
ED Nurse Note: pt discharge instruction provided, pt education done via discussion and handout, pt advised to follow up w/ pcp 2-3days, pt verbalized understanding and agrees with plan, pt wrist band removed, pt ambulatory w/ steady gait, vss, all belongings left w/ pt.
--- NOTE | 2018-03-07 13:56 | Emergency Room Report ---
History of Present Illness General Chief Complaint: Pain Source: Patient Present Illness HPI Patient presents with reports of body ache runny nose Feels that he had a flu possibly however denies any cough denies any chest pain Denies any neck pain or photophobia Had a mild sore throat Patient reports that he is from [place] the street from a rehab facility from substance abuse he has been there for 3 weeks and clean Denies any previous withdrawal symptoms Denies any diarrhea Allergies: Coded Allergies: No Known Allergies (Unverified , 05/08/17) Patient History Past Medical History: see triage record Pertinent Family History: none Reviewed Nursing Documentation: PMH: Agreed; PSxH: Agreed Nursing Documentation-PMH Past Medical History: No History, Except For Hx Cardiac Problems: No Hx Hypertension: No Hx Pacemaker: No Hx Asthma: No Hx COPD: No Hx Diabetes: No Hx Cancer: No Hx Gastrointestinal Problems: Yes - Hepatitis C Hx Dialysis: No Hx Neurological Problems: No Hx Cerebrovascular Accident: No Hx Seizures: No Review of Systems All Other Systems: negative except mentioned in HPI Physical Exam Vital Signs Date Time Temp Pulse Resp B/P (MAP) Pulse Ox O2 Delivery O2 Flow Rate FiO2 03/06/18 11:04 98.2 77 14 130/88 96 Room Air Sp02 EP Interpretation: reviewed, normal General Appearance: well appearing, no apparent distress Head: normocephalic, atraumatic Eyes: bilateral eye PERRL, bilateral eye EOMI ENT: hearing grossly normal, normal pharynx, TMs + canals normal, uvula midline Neck: full range of motion, supple, no meningismus, no bony tend Respiratory: lungs clear, normal breath sounds, no rhonchi, no respiratory distress, no retraction, no accessory muscle use Cardiovascular #1: normal peripheral pulses, regular rate, rhythm, no edema, no gallop, no JVD, no murmur Gastrointestinal: normal bowel sounds, non tender, soft, no mass, no organomegaly, non-distended, no guarding, no hernia, no pulsatile mass, no rebound Genitourinary: no CVA tenderness Musculoskeletal: normal inspection Neurologic: oriented x3, responsive, commercial service technician III-XII nml as tested, motor strength/ tone normal, sensory intact Psychiatric: mood/affect normal Skin: normal color, no rash, warm/dry, palpation normal Lymphatic: normal inspection, no adenopathy Medical Decision Making Diagnostic Impression: Primary Impression: myalgia ER Course Multiple differentials including but not limited to flu, meningitis, rhabdomyolysis all considered patient however fairly asymptomatic currently Benign medical evaluation I did not feel that further imaging or testing was appropriate And the patient will have initial conservative outpatient trial Last Vital Signs Date Time Temp Pulse Resp B/P (MAP) Pulse Ox O2 Delivery O2 Flow Rate FiO2 03/06/18 12:00 98.2 68 18 130/87 99 Room Air Status: improved Disposition: HOME, SELF-CARE Condition: Stable Referrals: NOT CHOSEN IPA/MD,REFERRING Patient Instructions: Muscle Pain, Adult Additional Instructions: Patient is provided with the discharge instructions notified to follow up with primary doctor in the next 2-3 days otherwise return to the er with any worsening symptoms. Please note that this report is being documented using [employer]elligent Portal [employer] technology. This can lead to erroneous entry secondary to incorrect interpretation by the dictating instrument. Theron Rock DO Mar 07, 2018 13:56
== END 2018-03-06 12:02 | disposition home or self-care (01) ==
LOC: EMR 11:36
DX: M79.10 Myalgia, unspecified site (principal); R09.89 Other specified symptoms and signs involving the circulatory and respiratory systems
CPT/HCPCS: 99282

== ENCOUNTER 2020-05-06 07:30 | Emergency (ER) | payer MEDICAID ==
[~2020-05-06] VITALS: Ht 182.9 cm; Wt 83.9 kg
[~2020-05-06 07:30] MED LIST changes: +TRAZODONE HCL50 MG ORAL
[2020-05-06 07:44] VITALS: BP 151/111
[2020-05-06] MEDS ORDERED: Metoclopramide 10mg/2ml Inj IVP ONE (08:00)
[2020-05-06] MEDS ORDERED: DiphenhydrAMINE 50mg/ml Inj IVP ONE (08:00)
[2020-05-06] MEDS ORDERED: Dicyclomine HCl 10mg/5ml oral soln ORAL ONE (08:00)
[2020-05-06] MEDS ORDERED: Lidocaine 2% Visc 15ml soln ORAL ONE (08:00)
[2020-05-06] MEDS ORDERED: Mylanta II UD 30ml ORAL ONE (08:00)
--- NOTE | 2020-05-06 08:01 | Emergency Room Report ---
History of Present Illness General Chief Complaint: Nausea, Vomiting, and Diarrhea Source: Patient Present Illness [facility] Disclaimer: Please note that this report is being documented using DRAGON technology. This can lead to erroneous entry secondary to incorrect interpretation by the dictating instrument. HPI: 50-year-old male presents for evaluation of vomiting and diarrhea. Symptoms began last night approximately 8 PM approximately 3 hours after eating dinner. This consisted of a salad but did not make it himself. He reports diffuse abdominal cramping, persistent nonbloody vomitus and persistent nonbloody diarrhea. Denies melena. Denies dysuria hematuria. Feels weak and dehydrated continues to make urine. Denies alcohol use. Patient is currently in a drug rehab program recovering from methamphetamines and cocaine. Last use was 1 week ago. Denies opiate use history. Denies history of abdominal surger ies. Denies fever chills, cough, congestion, chest pain. 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 COVID-19 Screening: Negative COVID-19 COVID-19 Testing Source: 2 months ago Nursing Documentation-PMH Hx Cardiac Problems: No Hx Hypertension: Yes Hx Pacemaker: No Hx Asthma: No Hx COPD: No Hx Diabetes: No Hx Cancer: No Hx Gastrointestinal Problems: Yes - Hepatitis C Hx Dialysis: No Hx Neurological Problems: No Hx Cerebrovascular Accident: No Hx Seizures: No Review of Systems All Other Systems: negative except mentioned in HPI Physical Exam Vital Signs Date Time Temp Pulse Resp B/P (MAP) Pulse Ox O2 Delivery O2 Flow Rate FiO2 05/06/20 07:44 97.7 102 16 151/111 (124) 98 Room Air General: Awake and alert, appears uncomfortable HEENT: NC/AT. EOMI. Cardiovascular: Mildly tachycardic Resp: Normal work of breathing. No cough, wheezing or crackles appreciated Abdomen: Abdomen is soft, nondistended. No focal tenderness. No rebound or guarding Skin: Intact. No abrasions, laceration or rash over the exposed skin MSK: Normal tone and bulk. Moving all extremities. No obvious deformity. Neuro: Awake and alert. Mentating appropriately. Medical Decision Making Diagnostic Impression: Primary Impression: Dehydration Additional Impression: Nausea, vomiting, and diarrhea ER Course 50-year-old male presents with nausea, vomiting, diarrhea and abdominal cramping beginning last night. Differential includes but is not limited to gastritis, gastroenteritis, pancreatitis, cholecystitis, foodborne illness, inflammatory bowel disease, substance abuse, withdrawal symptoms among others. Patient was slightly tachycardic but overall nontoxic appearing. Received IV fluids, antiemetics, antacids. Labs show elevated blood counts in general including WBC, RBC, hemoglobin, hematocrit as well as mild AMANDA. I suspect this is all hemoconcentration secondary to dehydration given the patient's large volume losses. He has received 2 L IV fluids. No further vomiting or diarrhea in the ED. He feels much better and would like to be discharged. He has a PMD and will arrange for follow-up visit next week and repeat labs. Will prescribe loperamide and Zofran to control his symptoms. Encouraged him to drink plenty of fluids and to return if he is unable to do so or if he develops new or worsening symptoms. He understands agrees with this treatment plan. Laboratory Tests Test 05/06/20 08:05 White Blood Count 16.8 K/UL (4.8-10.8) H Red Blood Count 7.14 M/UL (4.70-6.10) H Hemoglobin 21.0 G/DL (14.2-18.0) *H Hematocrit 60.9 % (42.0-52.0) H Mean Corpuscular Volume 85 FL (80-99) Mean Corpuscular Hemoglobin 29.4 PG (27.0-31.0) Mean Corpuscular Hemoglobin Concent 34.5 G/DL (32.0-36.0) Red Cell Distribution Width 12.3 % (11.6-14.8) Platelet Count 307 K/UL (150-450) Mean Platelet Volume 6.5 FL (6.5-10.1) Neutrophils (%) (Auto) % (45.0-75.0) Lymphocytes (%) (Auto) % (20.0-45.0) Monocytes (%) (Auto) % (1.0-10.0) Eosinophils (%) (Auto) % (0.0-3.0) Basophils (%) (Auto) % (0.0-2.0) Differential Total Cells Counted 100 Neutrophils % (Manual) 84 % (45-75) H Lymphocytes % (Manual) 9 % (20-45) L Monocytes % (Manual) 5 % (1-10) Eosinophils % (Manual) 0 % (0-3) Basophils % (Manual) 0 % (0-2) Band Neutrophils 2 % (0-8) Platelet Estimate Adequate Platelet Morphology Normal Red Blood Cell Morphology Normal Urine Color Yellow Urine Appearance Clear Urine pH 8 (4.5-8.0) Urine Specific [place] 1.010 (1.005-1.035) Urine Protein 3+ (NEGATIVE) H Urine Glucose (UA) Negative (NEGATIVE) Urine Ketones 1+ (NEGATIVE) H Urine Blood Negative (NEGATIVE) Urine Nitrite Negative (NEGATIVE) Urine Bilirubin Negative (NEGATIVE) Urine Urobilinogen Normal MG/DL (0.0-1.0) Urine Leukocyte Esterase 2+ (NEGATIVE) H Urine RBC 0 /HPF (0 - 0) Urine WBC 2-4 /HPF (0 - 0) Urine Squamous Epithelial Cells Occasional /LPF Urine Bacteria Few /HPF (NONE) Urine Hyaline Casts 0-2 /LPF (NONE) H Urine Mucus Occasional /LPF Sodium Level 142 MMOL/L (136-145) Potassium Level 4.7 MMOL/L (3.5-5.1) Chloride Level 100 MMOL/L (98-107) Carbon Dioxide Level 30 MMOL/L (21-32) Anion Gap 12 mmol/L (5-15) Blood Urea Nitrogen 21 mg/dL (7-18) H Creatinine 1.6 MG/DL (0.55-1.30) H Estimated Glomerular Filtration Rate 45.6 mL/min (>60) Glucose Level 152 MG/DL (74-106) H Calcium Level 10.4 MG/DL (8.5-10.1) H Total Bilirubin 0.5 MG/DL (0.2-1.0) Aspartate Amino Transferase (AST) 33 U/L (15-37) Alanine Aminotransferase (ALT) 58 U/L (12-78) Alkaline Phosphatase 90 U/L (46-116) Total Protein 8.9 G/DL (6.4-8.2) H Albumin 4.7 G/DL (3.4-5.0) Globulin 4.2 g/dL Albumin/Globulin Ratio 1.1 (1.0-2.7) Lipase 151 U/L (73-393) Last Vital Signs Date Time Temp Pulse Resp B/P (MAP) Pulse Ox O2 Delivery O2 Flow Rate FiO2 05/06/20 07:44 97.7 102 16 151/111 (124) 98 Room Air Disposition: HOME, SELF-CARE Condition: Stable Scripts Loperamide Hcl (ANTI-DIARRHEAL) 2 Mg Capsule 2 MG PO TID for 5 Days, #15 CAP Prov: Dontea Tristan MD 05/06/20 Ondansetron Odt* (ZOFRAN ODT*) 4 Mg Tab.rapdis 4 MG BC EVERY 6 HOURS PRN for Nausea & Vomiting, #20 TAB 0 Refills Prov: Dontae Tristan MD 05/06/20 Referrals: [facility],REFERRING (PCP) Dontae Tristan MD May 06, 2020 08:01
[2020-05-06 08:27] LABS: APPEARANCE,URINE CLEAR; BILIRUBIN, URINE NEGATIVE (NEGATIVE); GLUCOSE, URINE (UA) NEGATIVE (NEGATIVE); HEMATOCRIT 60.9 % (42.0-52.0); KETONES,URINE 1+ (NEGATIVE); LEUKOCYTE ESTERASE ,URINE 2+ (NEGATIVE); MEAN CORPUSCULAR VOLUME 85 FL (80-99); NITRITE,URINE NEGATIVE (NEGATIVE); PH,URINE 8 (4.5-8.0); PLATELET COUNT 307 K/UL (150-450); PROTEIN,URINE 3+ (NEGATIVE); RED BLOOD COUNT 7.14 M/UL (4.70-6.10); RED CELL DISTRIBUTION WIDTH 12.3 % (11.6-14.8); UROBILINOGEN,URINE NORMAL MG/DL (0.0-1.0); WHITE BLOOD COUNT 16.8 K/UL (4.8-10.8)
[2020-05-06 08:31] LABS: CALCIUM 10.4 MG/DL (8.5-10.1); COLOR,URINE YELLOW; CREATININE 1.6 MG/DL (0.55-1.30); POTASSIUM 4.7 MMOL/L (3.5-5.1)
[2020-05-06 08:36] LABS: ALBUMIN 4.7 G/DL (3.4-5.0); ALBUMIN/GLOBULIN RATIO 1.1 (1.0-2.7); BILIRUBIN,TOTAL 0.5 MG/DL (0.2-1.0)
--- NOTE | 2020-05-06 09:05 | NUR ---
Patient presents to the Er with c/o vomiting anf diarrhea. Reports that his symptome began last night , approximately three hours after he had dinner. Denies alcohol and drug use at present. Last drug use was 1 week ago. Is currently in a drug rehab program recovering from cocaine and methamphetamines
[2020-05-06] MEDS ORDERED: ANTI-DIARRHEAL2 MG PO (09:54)
[2020-05-06] MEDS ORDERED: ONDANSETRON ODT4 MG BC (09:54)
== END 2020-05-06 10:00 | disposition home or self-care (01) ==
LOC: EMR 07:55
DX: E86.0 Dehydration (principal); R11.2 Nausea with vomiting, unspecified; R19.7 Diarrhea, unspecified; I10 Essential (primary) hypertension; Z86.19 Personal history of other infectious and parasitic diseases; F15.11 Other stimulant abuse, in remission
CPT/HCPCS: 36415; 80053; 81003; 83690; 85007; 85025; 96361; 96374; 96375; J1200; J2765; J7030; S0028; Z7502; 99284

== ENCOUNTER 2020-05-14 14:40 | Emergency (ER) | payer MEDICAID ==
[~2020-05-14] VITALS: Ht 182.9 cm; Wt 82.1 kg
[~2020-05-14 14:40] MED LIST changes: +ANTI-DIARRHEAL2 MG PO; +ONDANSETRON ODT4 MG BC
[2020-05-14 14:55] VITALS: BP 136/97
--- NOTE | 2020-05-14 14:58 | NUR ---
Patient reports to the ER with c/o diarrhea and nausea which started last night. NK[facility] Medical hx: inguinal hernia, HTN, Currently in drug Tx. Addendum: 05/14/20 at 1458 by RAJESH [email or web address] Hx: Drug abuse Unable to sit still throughout interview. When asked about his inability to sit still, patient reports that it helps him with his nausea
--- NOTE | 2020-05-14 15:09 | NUR ---
pt denies pain. iv placed, blood drawn, labs & urine sent. pt placed on continuous cardiac/O2 monitor. pt taken to CT.
--- NOTE | 2020-05-14 15:09 | Emergency Room Report ---
History of Present Illness General Chief Complaint: Diarrhea Source: Patient Present Illness HPI Disclaimer: Please note that this report is being documented using DRAGON technology. This can lead to erroneous entry secondary to incorrect interpretation by the dictating instrument. HPI: 50-year-old male presents with abdominal pain vomiting and diarrhea. Symptoms present over the past 8 hours. Patient was seen in this facility last week diagnosed with SBO and transferred to [facility]. States he was managed nonoperatively and began eating again 2 days ago. Reports watery diarrhea since this morning abdominal cramping in the lower quadrants as well as 1 episode of vomiting. Denies fever or chills. Denies drug or alcohol use. Prior history of bilateral inguinal hernias. Otherwise no intra-abdominal surgeries. Denies dysuria hematuria. Denies flank pain. Denies chest pain, palpitations, cough or shortness of breath. Pain is getting worse throughout the day. No relieving factors. 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 COVID-19 Screening: Negative COVID-19 COVID-19 Testing Source: [facility] Nursing Documentation-PM Past Medical History: No History, Except For Hx Cardiac Problems: No Hx Hypertension: Yes Hx Pacemaker: No Hx Asthma: No Hx COPD: No Hx Diabetes: No Hx Cancer: No Hx Gastrointestinal Problems: Yes Hx Dialysis: No Hx Neurological Problems: No Hx Cerebrovascular Accident: No Hx Seizures: No Review of Systems All Other Systems: negative except mentioned in HPI Physical Exam Vital Signs Date Time Temp Pulse Resp B/P (MAP) Pulse Ox O2 Delivery O2 Flow Rate FiO2 05/14/20 14:48 97.9 91 20 136/97 (110) 100 Room Air General: Awake and alert, no acute distress HEENT: NC/AT. EOMI. Cardiovascular: RRR. S1 and S2 normal. No murmur appreciated Resp: Normal work of breathing. No cough, wheezing or crackles appreciated Abdomen: Abdomen is mildly distended. Tenderness palpation lower quadrants, suprapubic region, periumbilical region. No guarding. Negative rebound. Skin: Intact. No abrasions, laceration or rash over the exposed skin MSK: Normal tone and bulk. Moving all extremities. No obvious deformity. Neuro: Awake and alert. Mentating appropriately. Medical Decision Making Diagnostic Impression: Primary Impression: Diarrhea ER Course 50-year-old male presents with diarrhea and abdominal pain 8 hours duration. Concern for recurrent SBO, gastritis, gastroenteritis, consequence of refeeding, pancreatitis, cholecystitis, UTI, pyelonephritis, irritable bowel syndrome, Crohn's, UC among others. Labs returned unremarkable. He is again positive for cocaine. CT scan shows dilated small and large bowel without evidence of obstruction. There is fluid in the bowels consistent with diarrhea. Unclear if this may be an early ileus. Discussed admission with patient however he declined stating he would return if symptoms fail to improve. He stated he feels reassured that this was not a recurrent SBO. I discussed with him that an SBO may occur again and that he should be mindful of symptoms and promised to return if he fails to improve. He stated he would and left the emergency department. Laboratory Tests Test 05/14/20 14:59 05/14/20 15:07 Urine Color Yellow Urine Appearance Clear Urine pH 5 (4.5-8.0) Urine Specific [place] 1.025 (1.005-1.035) Urine Protein 1+ (NEGATIVE) H Urine Glucose (UA) Negative (NEGATIVE) Urine Ketones 1+ (NEGATIVE) H Urine Blood Negative (NEGATIVE) Urine Nitrite Negative (NEGATIVE) Urine Bilirubin 1+ (NEGATIVE) H Urine Ictotest Negative (NEGATIVE) Urine Urobilinogen 1 MG/DL (0.0-1.0) H Urine Leukocyte Esterase 1+ (NEGATIVE) H Urine RBC 0-2 /HPF (0 - 0) H Urine WBC 2-4 /HPF (0 - 0) Urine Squamous Epithelial Cells Few /LPF (NONE/OCC) Urine Calcium Oxalate Crystals Few /LPF (NONE) Urine Bacteria Few /HPF (NONE) Urine Mucus Moderate /LPF (NONE/OCC) H Urine Opiates Screen Negative (NEGATIVE) Urine Barbiturates Screen Negative (NEGATIVE) Phencyclidine (PCP) Screen Negative (NEGATIVE) Urine Amphetamines Screen Negative (NEGATIVE) Urine Benzodiazepines Screen Negative (NEGATIVE) Urine Cocaine Screen Positive (NEGATIVE) H Urine Marijuana (THC) Screen Negative (NEGATIVE) White Blood Count 10.9 K/UL (4.8-10.8) H Red Blood Count 6.39 M/UL (4.70-6.10) H Hemoglobin 18.0 G/DL (14.2-18.0) Hematocrit 54.1 % (42.0-52.0) H Mean Corpuscular Volume 85 FL (80-99) Mean Corpuscular Hemoglobin 28.2 PG (27.0-31.0) Mean Corpuscular Hemoglobin Concent 33.3 G/DL (32.0-36.0) Red Cell Distribution Width 12.3 % (11.6-14.8) Platelet Count 272 K/UL (150-450) Mean Platelet Volume 6.7 FL (6.5-10.1) Neutrophils (%) (Auto) 63.6 % (45.0-75.0) Lymphocytes (%) (Auto) 20.9 % (20.0-45.0) Monocytes (%) (Auto) 10.6 % (1.0-10.0) H Eosinophils (%) (Auto) 4.2 % (0.0-3.0) H Basophils (%) (Auto) 0.8 % (0.0-2.0) Sodium Level 139 MMOL/L (136-145) Potassium Level 3.9 MMOL/L (3.5-5.1) Chloride Level 106 MMOL/L (98-107) Carbon Dioxide Level 21 MMOL/L (21-32) Anion Gap 12 mmol/L (5-15) Blood Urea Nitrogen 9 mg/dL (7-18) Creatinine 1.3 MG/DL (0.55-1.30) Estimated Glomerular Filtration Rate 58.0 mL/min (>60) Glucose Level 119 MG/DL (74-106) H Calcium Level 9.4 MG/DL (8.5-10.1) Total Bilirubin 0.3 MG/DL (0.2-1.0) Aspartate Amino Transferase (AST) 19 U/L (15-37) Alanine Aminotransferase (ALT) 47 U/L (12-78) Alkaline Phosphatase 83 U/L (46-116) Total Protein 7.2 G/DL (6.4-8.2) Albumin 3.6 G/DL (3.4-5.0) Globulin 3.6 g/dL Albumin/Globulin Ratio 1.0 (1.0-2.7) Lipase 98 U/L (73-393) Last Vital Signs Date Time Temp Pulse Resp B/P (MAP) Pulse Ox O2 Delivery O2 Flow Rate FiO2 05/14/20 14:55 97.9 91 20 136/97 100 Room Air Disposition: HOME, SELF-CARE Condition: Stable Referrals: [facility],REFERRING (PCP) Dontae Tristan MD May 14, 2020 15:09
[2020-05-14 15:38] LABS: BASOPHILS % (AUTO) 0.8 % (0.0-2.0); EOSINOPHILS % (AUTO) 4.2 % (0.0-3.0); HEMATOCRIT 54.1 % (42.0-52.0); LYMPHOCYTES % (AUTO) 20.9 % (20.0-45.0); MEAN CORPUSCULAR VOLUME 85 FL (80-99); MONOCYTES % (AUTO) 10.6 % (1.0-10.0); NEUTROPHILS % (AUTO) 63.6 % (45.0-75.0); PLATELET COUNT 272 K/UL (150-450); RED BLOOD COUNT 6.39 M/UL (4.70-6.10); RED CELL DISTRIBUTION WIDTH 12.3 % (11.6-14.8); WHITE BLOOD COUNT 10.9 K/UL (4.8-10.8)
[2020-05-14 15:44] LABS: CALCIUM 9.4 MG/DL (8.5-10.1); CREATININE 1.3 MG/DL (0.55-1.30); POTASSIUM 3.9 MMOL/L (3.5-5.1)
[2020-05-14 15:49] LABS: ALBUMIN 3.6 G/DL (3.4-5.0); BILIRUBIN,TOTAL 0.3 MG/DL (0.2-1.0)
[2020-05-14 15:50] LABS: APPEARANCE,URINE CLEAR; BILIRUBIN, URINE 1+ (NEGATIVE); GLUCOSE, URINE (UA) NEGATIVE (NEGATIVE); KETONES,URINE 1+ (NEGATIVE); LEUKOCYTE ESTERASE ,URINE 1+ (NEGATIVE); NITRITE,URINE NEGATIVE (NEGATIVE); PH,URINE 5 (4.5-8.0); PROTEIN,URINE 1+ (NEGATIVE); UROBILINOGEN,URINE 1 MG/DL (0.0-1.0)
[2020-05-14 15:52] LABS: COLOR,URINE YELLOW
[2020-05-14 16:11] VITALS: BP 143/92
--- NOTE | 2020-05-14 16:11 | Diagnostic Imaging Report ---
EXAM: CT Abdomen and Pelvis Without Intravenous Contrast CLINICAL HISTORY: ABD PAIN TECHNIQUE: Axial computed tomography images of the abdomen and pelvis without intravenous contrast. CTDI is 6.1 mGy and DLP is 365.5 mGy-cm. One or more of the following dose reduction techniques were used: automated exposure control, adjustment of the mA and/or kV according to patient size, use of iterative reconstruction technique. COMPARISON: No relevant prior studies available. FINDINGS: ABDOMEN: Liver: Fatty liver. Gallbladder and bile ducts: Probable vicarious excretion of contrast into the gallbladder. Pancreas: Unremarkable. Spleen: Unremarkable. Adrenals: Left adrenal adenoma, 13 mm. Kidneys and ureters: Left nephrolithiasis Left renal cyst. Small low- attenuation foci in kidneys. Stomach and bowel: Fluid in the colon suggesting diarrhea. Nonspecific bowel gas pattern with dilatation in small and large bowel. PELVIS: Appendix: Unremarkable appendix. Bladder: Unremarkable. Reproductive: Unremarkable. ABDOMEN and PELVIS: Intraperitoneal space: Unremarkable. Bones/joints: No acute fracture. Soft tissues: Fat-containing left inguinal hernia. Vasculature: Unremarkable. No abdominal aortic aneurysm. Lymph nodes: No enlarged lymph nodes. IMPRESSION: 1. Fluid in the colon suggesting diarrhea. 2. Nonspecific bowel gas pattern with dilatation in small and large bowel. 3. Unremarkable appendix.
--- NOTE | 2020-05-14 16:12 | NUR ---
pt resting in bed. on monitor. VSS. will continue to monitor. pt denies pain at this time.
--- NOTE | 2020-05-14 16:36 | NUR ---
AMA: SEE AMA FORM. pt refusing to stay. states he "just wanted to make sure it was nothign serious". MD spoke with pt at bedside and explained risks of leaving against medical advice. pt declining treatment. AMA form signed. pt ambulatory when leaving.
--- NOTE | 2020-05-14 16:37 | NUR ---
IV removed, ID band removed. pt A&Ox4 when leaving.
== END 2020-05-14 16:30 | disposition home or self-care (01) ==
LOC: EMR 14:57 → CANBEDREQ 16:18 → EMR 16:30
DX: R19.7 Diarrhea, unspecified (principal); R10.9 Unspecified abdominal pain; R11.10 Vomiting, unspecified; I10 Essential (primary) hypertension; K40.90 Unilateral inguinal hernia, without obstruction or gangrene, not specified as recurrent
CPT/HCPCS: 36415; 74176; 80053; 80307; 81003; 83690; 85025; Z7502; 99284